=== PATIENT | male | born 1960 | race Caucasian/White ===

== ENCOUNTER 2018-03-09 12:28 | Emergency (ER) | payer OTHER ==
[~2018-03-09] VITALS: Ht 177.8 cm; Wt 73.9 kg
[2018-03-09] MEDS ORDERED: COLC0.6T37 PO (14:11)
[2018-03-09] MEDS ORDERED: LEVO175T2 PO (14:11)
[2018-03-09 14:36] LABS: BASOPHILS # (AUTO) 0.01 x10^3/uL (0-0.1); BASOPHILS % (AUTO) 0 % (0-1); EOSINOPHILS # (AUTO) 0.13 x10^3/uL (0-0.4); EOSINOPHILS % (AUTO) 2 % (1-7); LYMPHOCYTES # (AUTO) 1.82 x10^3/uL (1-3.4); LYMPHOCYTES % (AUTO) 24 % (22-44); MD NO; MEAN CORPUSCULAR HEMOGLOBIN 31.6 pg (27.5-34.5); MEAN CORPUSCULAR HGB CONC 34.8 g/dL (33.2-36.2); MEAN CORPUSCULAR VOLUME 90.8 fL (81-97); MEAN PLATELET VOLUME 7.8 fL (7.4-10.4); MONOCYTES # (AUTO) 0.64 x10^3/uL (0.2-0.8); MONOCYTES % (AUTO) 8 % (2-9); NEUTROPHILS % (AUTO) 66 % (42-75); PLATELET COUNT 199 x10^3/uL (130-400); RED BLOOD COUNT 5.52 x10^6/uL (4.38-5.82); RED CELL DISTRIBUTION WIDTH 13.6 % (9.4-14.8)
[2018-03-09 14:46] LABS: ALBUMIN 4.1 g/dL (3.4-5.0); ANION GAP 7 mmol/L (5-15); CALCIUM 9.4 mg/dL (8.5-10.1); CHLORIDE 106 mmol/L (98-107)
[2018-03-09 14:51] LABS: CREATININE 1.03 mg/dL (0.7-1.3); FREE T4 (FREE THYROXINE) 1.79 ng/dL (0.76-1.46); INTERNATIONAL NORMALIZED RATIO 0.96 (0.93-1.1); TROPONIN I < 0.015 ng/mL (0.000-0.045)
[2018-03-09 14:57] LABS: THYROID STIMULATING HORMONE 0.029 mIU/L (0.358-3.740)
[2018-03-09] MEDS ORDERED: OMNIPAQUE 350 MG/ML, 100ML BOTTLE ONE (15:51)
[2018-03-09 17:33] VITALS: BP 145/95
== END 2018-03-09 17:39 | disposition home or self-care (01) ==
LOC: ED 15:29
DX: R53.1 Weakness (principal); Z87.891 Personal history of nicotine dependence; E07.9 Disorder of thyroid, unspecified
CPT/HCPCS: 36415; 71046; 71275; 80048; 82040; 84439; 84443; 84484; 85025; 85610; 85730; 93005; 99285; Q9967

== ENCOUNTER 2018-03-15 09:56 | Day surgery (SDC) | payer OTHER ==
[~2018-03-15] VITALS: Ht 177.8 cm; Wt 72.7 kg
[~2018-03-15 09:56] MED LIST: COLC0.6T37 PO; LEVO175T2 PO
[2018-03-15] MEDS ORDERED: SODIUM CHLORIDE 0.9% 1,000 ML IV ONE (10:13)
[2018-03-15 10:23] VITALS: BP 143/91
[2018-03-15] MEDS ORDERED: TICAGRELOR 90 MG TABLET ONE (11:23)
[2018-03-15] MEDS ORDERED: VERAPAMIL 2.5 MG/ML, 2ML ONE (11:23)
[2018-03-15] MEDS ORDERED: FENTANYL PF 100 MCG/2ML ONE (11:23)
[2018-03-15] MEDS ORDERED: NITROGLYCERIN 5 MG/ML, 10ML ONE (11:23)
[2018-03-15] MEDS ORDERED: HEPARIN 1,000 UNITS/ML, 10ML ONE (11:23)
[2018-03-15] MEDS ORDERED: MIDAZOLAM 1 MG/ML, 5ML ONE (11:23)
[2018-03-15] MEDS ORDERED: BIVALIRUDIN 250 MG ONE (11:23)
[2018-03-15] MEDS ORDERED: SODIUM CHLORIDE 0.9% 1,000 ML IV SCH (12:12)
== END 2018-03-15 14:51 | disposition home or self-care (01) ==
LOC: CACL 09:56
PROVIDERS: ATTEND Internal Medicine Cardiovascular Disease
DX: I25.10 Atherosclerotic heart disease of native coronary artery without angina pectoris (principal); E03.9 Hypothyroidism, unspecified; Z87.891 Personal history of nicotine dependence; Z91.018 Allergy to other foods
CPT/HCPCS: 93458; 99156; C1769; C1894; J1644; J2250; J3010; Q9967; J0583